=== PATIENT | female | born 1995 | race Caucasian/White ===

== ENCOUNTER 2017-06-14 20:47 | Emergency (ER) | payer OTHER ==
[~2017-06-14] VITALS: Ht 167.6 cm; Wt 74.2 kg
[2017-06-14 20:52] VITALS: Ht 167.6 cm; Wt 74.2 kg
[2017-06-14] MEDS ORDERED: ONDANSETRON INJ 2 MG/ML 2 ML VIAL IV STA (21:01)
[2017-06-14] MEDS ORDERED: CEFTRIAXONE SOD INJ 1 GM ADDVIAL IV STA (21:01)
[2017-06-14] MEDS ORDERED: SODIUM CHLORIDE 0.9% 1000ML 1,000 ML IV STA (21:01)
[2017-06-14] MEDS ORDERED: KETOROLAC TROMETHAMINE 30 MG/ML VIAL IV STA (21:01)
--- NOTE | 2017-06-14 21:09 | EMERGENCY ROOM VISIT NOTE ---
History Report prepared by Orion: Renea Paez Under the Supervision of: Dr. Conrado Smiley M.D. First contact with patient: 20:56 Chief Complaint: URINARY SYMPTOMS Stated Complaint: BACK PAIN/UTI SX Nursing Triage Summary: Urinary tract infection diagnosed at [facility] earlier today. History of Present Illness The patient is a 21 year old female who presents to the Emergency Room with complaints of constant urinary symptoms beginning today. The patient states that she was seen at [facility] today for burning with urination and urinary frequency. 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 She complains of a fever, back pain, and vomiting. The patient notes that she is on her period. Source of History: patient Onset: today Position: other (urinary) Quality: burning Timing: constant Associated Symptoms: + fevers, + vomiting, + back pain Review of Systems See HPI for pertinent positives & negatives. A total of 10 systems reviewed and were otherwise negative. Past Medical & Surgical Medical Problems: (1) No Known Active Medical Problems Family History No pertinent family history stated. Social History Smoking Status: Never Smoker Marital Status: single Housing Status: lives with roommate Occupation Status: [employer] student Current/Historical Medications Scheduled Ondasetron Odt (Zofran Odt), 4 MG SL Q6H Sulfamethoxazole-Trimethoprim (Bactrim Ds 800MG/160MG), 1 TAB PO BID Scheduled PRN Oxycodone Immediate Rel Tab (Roxicodone Ir), 1-2 TAB PO Q4H PRN for Severe Pain Allergies Coded Allergies: No Known Allergies (Unverified , 06/14/17) Physical Exam Vital Signs Date Time Temp Pulse Resp B/P (MAP) Pulse Ox O2 Delivery O2 Flow Rate FiO2 06/14/17 23:44 37.4 101 18 111/79 97 06/14/17 22:50 111 24 112/74 96 Room Air 06/14/17 21:35 122 06/14/17 20:52 38.1 75 22 /141 100 Room Air Physical Exam GENERAL: Patient is a healthy-appearing well-nourished female HEAD: Normocephalic atraumatic EYES: Ocular movements intact pupils equal and react to light OROPHARYNX mucous membranes are moist no exudates present no erythema or edema present NECK: Supple no nuchal rigidity CHEST: Good equal expansion LUNGS: Clear and equal to auscultation CARDIAC: Normal S1 and S2 ABDOMEN: Soft nontender no guarding BACK: Right CVA tenderness. EXTREMITIES: No pain upon palpation normal muscle strength in all groups no clubbing cyanosis or edema NEURO: Patient is following commands and answering questions appropriately. Alert and oriented x3 Cranial Nerves 2-12 grossly intact Medical Decision & Procedures ER Provider Diagnostic Interpretation: Radiology results as stated below per my review and radiologist interpretation: RENAL ULTRASOUND FINDINGS: Right kidney: 11.8 cm. No hydronephrosis. Normal corticomedullary differentiation and cortical thickness. Left kidney: 11.0 cm. The lower pole is partially obscured by overlying bowel gas. No hydronephrosis. Normal corticomedullary differentiation and cortical thickness. Bladder: No bladder wall thickening. The bilateral ureteral jets were identified. IMPRESSION: Normal renal ultrasound. No hydronephrosis. Electronically signed by: Jayson Garcia M.D. 06/14/2017 10:33 PM Dictated Date/Time: 06/14/2017 10:31 PM KUB FINDINGS: The bowel gas pattern is unremarkable. There are no dilated loops of small bowel to suggest an obstruction. No renal calculi identified. Dextroscoliosis of the lumbar spine. A 5 mm calcification within the right deep pelvis. No pneumoperitoneum or pneumatosis. IMPRESSION: A 5 mm nonspecific calcification within the right deep pelvis. This could represent a ureterovesical junction stone given the patient's history of right flank pain. Electronically signed by: Jayson Garcia M.D. 06/14/2017 10:15 PM Dictated Date/Time: 06/14/2017 10:14 PM Laboratory Results 06/14/17 21:10 Red Blood Count 5.16, Mean Corpuscular Volume 85.1, Mean Corpuscular Hemoglobin 30.4, Mean Corpuscular Hemoglobin Concent 35.8, Mean Platelet Volume 10.2, Neutrophils (%) (Auto) 89.2, Lymphocytes (%) (Auto) 9.0, Monocytes (%) (Auto) 1.0, Eosinophils (%) (Auto) 0.3, Basophils (%) (Auto) 0.1, Neutrophils # (Auto) 6.86, Lymphocytes # (Auto) 0.69, Monocytes # (Auto) 0.08, Eosinophils # (Auto) 0.02, Basophils # (Auto) 0.01 06/14/17 21:10 Test 06/14/17 21:05 06/14/17 21:10 Urine Color YELLOW Urine Appearance CLEAR (CLEAR) Urine pH 8.5 (4.5-7.5) Urine Specific [place] 1.009 (1.000-1.030) Urine Protein NEG (NEG) Urine Glucose (UA) NEG (NEG) Urine Ketones 1+ (NEG) Urine Occult Blood 1+ (NEG) Urine Nitrite NEG (NEG) Urine Bilirubin NEG (NEG) Urine Urobilinogen NEG (NEG) Urine Leukocyte Esterase MODERATE (NEG) Urine WBC (Auto) >30 /hpf (0-5) Urine RBC (Auto) 5-10 /hpf (0-4) Urine Hyaline Casts (Auto) 1-5 /lpf (0-5) Urine Epithelial Cells (Auto) 10-20 /lpf (0-5) Urine Bacteria (Auto) 1+ (NEG) Urine Test NEG (NEG) White Blood Count 7.69 K/uL (4.8-10.8) Red Blood Count 5.16 M/uL (4.2-5.4) Hemoglobin 15.7 g/dL (12.0-16.0) Hematocrit 43.9 % (37-47) Mean Corpuscular Volume 85.1 fL (80-100) Mean Corpuscular Hemoglobin 30.4 pg (25-34) Mean Corpuscular Hemoglobin Concent 35.8 g/dl (32-36) Platelet Count 237 K/uL (130-400) Mean Platelet Volume 10.2 fL (7.4-10.4) Neutrophils (%) (Auto) 89.2 % Lymphocytes (%) (Auto) 9.0 % Monocytes (%) (Auto) 1.0 % Eosinophils (%) (Auto) 0.3 % Basophils (%) (Auto) 0.1 % Neutrophils # (Auto) 6.86 K/uL (1.4-6.5) Lymphocytes # (Auto) 0.69 K/uL (1.2-3.4) Monocytes # (Auto) 0.08 K/uL (0.11-0.59) Eosinophils # (Auto) 0.02 K/uL (0-0.5) Basophils # (Auto) 0.01 K/uL (0-0.2) RDW Standard Deviation 41.5 fL (36.4-46.3) RDW Coefficient of Variation 13.3 % (11.5-14.5) Immature Granulocyte % (Auto) 0.4 % Immature Granulocyte # (Auto) 0.03 K/uL (0.00-0.02) Anion Gap 12.0 mmol/L (3-11) Est Creatinine Clear Calc Drug Dose 84.7 ml/min Estimated GFR () 84.3 Estimated GFR (Non- 72.7 BUN/Creatinine Ratio 8.5 (10-20) Calcium Level 10.2 mg/dl (8.5-10.1) Total Bilirubin 1.3 mg/dl (0.2-1) Direct Bilirubin 0.3 mg/dl (0-0.2) Aspartate Amino Transf (AST/SGOT) 15 U/L (15-37) Alanine Aminotransferase (ALT/SGPT) 18 U/L (12-78) Alkaline Phosphatase 64 U/L (45-117) Total Protein 9.3 gm/dl (6.4-8.2) Albumin 4.5 gm/dl (3.4-5.0) Lipase 97 U/L (73-393) Labs reviewed by ED physician. Medications Administered Medications (Trade) Dose Ordered Sig/Mirtha Route Start Time Stop Time Status Last Admin Dose Admin Ceftriaxone Sodium (Rocephin Inj) 1 gm NOW STAT IV 06/14/17 21:01 06/14/17 21:04 DC 06/14/17 21:18 1 GM Ketorolac Tromethamine (Toradol Inj) 30 mg NOW STAT IV 06/14/17 21:01 06/14/17 21:04 DC 06/14/17 21:18 30 MG Sodium Chloride 1,000 ml @ 999 mls/hr Q1H1M STAT IV 06/14/17 21:01 06/14/17 22:01 DC 06/14/17 21:01 999 MLS/HR Ondansetron HCl (Zofran Inj) 4 mg NOW STAT IV 06/14/17 21:01 06/14/17 21:04 DC 06/14/17 21:18 4 MG Trimethoprim/ Sulfamethoxazole (Septra Ds 800/ 160MG Tab) 1 tab NOW STAT PO 06/14/17 21:49 06/14/17 21:50 DC 06/14/17 22:55 1 TAB Acetaminophen (Tylenol Tab) 1,000 mg NOW STAT PO 06/14/17 21:55 06/14/17 21:56 DC 06/14/17 22:55 1,000 MG ED Course 2055: Past medical records reviewed. The patient was evaluated in room B12. A complete history and physical examination was performed. 2100: Zofran Inj 4mg IV, Sodium Chloride 1000 ml @ 999 mls/hr IV, Toradol Inj 30mg IV, Rocephin Inj 1gm IV. 2148: Trimethoprim/Sulfamethoxazole 1 tab PO. 2154: Tylenol Tab 1000mg PO. 2156: I reevaluated the patient. She is feeling much better. 4: Upon reexamination the patient is doing well. I discussed results and treatment plan with the patient. She verbalizes agreement and understanding. The patient is ready for discharge. Medical Decision Differential diagnosis: Etiologies such as renal colic, appendicitis, diverticulitis, mesenteric ischemia, aortic pathology, infections, inflammatory bowel disease, PUD, biliary pathology, UTI, as well as others were entertained. This is a 21-year-old female who presents emergency department complaining of right-sided flank pain along with fever. The patient is tender on examination to the right side. She is also complaining of urinary frequency and burning when she goes. I do believe the patient is most likely suffering from a urinary tract infection. She does have a large amount of white blood cells in her urine. An IV was established, patient given normal saline bolus. She does have a normal white blood cell count however has a left shift. She was given Toradol as well as Rocephin and Zofran in the emergency department. Repeat examination revealed improvement the patient's symptoms. I do feel the patient can be safely discharged home however I stressed the need to return she develops any chest pain or shortness of breath. Patient was in agreement with the treatment plan. Medication Reconcilliation Current Medication List: was personally reviewed by me Impression Primary Impression: Urinary tract infection Scribe Attestation The scribe's documentation has been prepared under my direction and personally reviewed by me in its entirety. I confirm that the note above accurately reflects all work, treatment, procedures, and medical decision making performed by me. Departure Information Dispostion Home / Self-Care Prescriptions Oxycodone Immediate Rel Tab (ROXICODONE IR) 5 Mg Tab 1-2 TAB PO Q4H Y for Severe Pain, #14 TAB Prov: Conrado Smiley MD 06/14/17 Ondasetron Odt (ZOFRAN ODT) 4 Mg Tab 4 MG SL Q6H for Nausea, #6 TAB Prov: Conrado Smiley MD 06/14/17 Sulfamethoxazole-Trimethoprim (Bactrim Ds 800MG/160MG) 1 Tab Tab 1 TAB PO BID for 10 Days, #20 TAB Prov: Conrado Smiley MD 06/14/17 Forms HOME CARE DOCUMENTATION FORM, IMPORTANT VISIT INFORMATION Patient Instructions My [facility] Additional Instructions You were found to have an elevated blood pressure today (>120 sytolic or >90 diastolic). Per medicare guidelines, you need to follow up with this blood pressure screening with your Primary Care Physician (PCP). For a new PCP call [phone]. You received narcotic or benzodiazepene medication while in the emergency room today. Do not drive, operate heavy machinery, or drink alcohol under the influence of this medication. Take 600 mg Ibuprofen every 6 hours Take 1000 mg Tylenol every 6 hours Take oxy for breakthrough pain Culture results are usually available in approx 48 hours You have been examined and treated today on an emergency basis only. This is not a substitute for, or an effort to provide, complete comprehensive medical care. It is impossible to recognize and treat all injuries or illnesses in a single emergency department visit. It is therefore important that you follow up closely with your PCP. Call as soon as possible for an appointment. Thank you for your time and consideration. I look forward to speaking with you again soon. Please don't hesitate to call us if you have any questions. Problem Qualifiers Primary Impression: Urinary tract infection Urinary tract infection type: acute cystitis Hematuria presence: without hematuria Qualified Codes: N30.00 - Acute cystitis without hematuria
[2017-06-14 21:27] LABS: BASO % 0.1 %; BASO ABS # 0.01 K/uL (0-0.2); COMPLETE YES; EOS % 0.3 %; HEMATOCRIT 43.9 % (37-47); IG% 0.4 %; LYMPH ABS # 0.69 K/uL (1.2-3.4); MEAN CELL VOLUME 85.1 fL (80-100); MEAN CORPUSCULAR HEMOGLOBIN 30.4 pg (25-34); MEAN CORPUSCULAR HGB CONC 35.8 g/dl (32-36); MEAN PLATELET VOLUME 10.2 fL (7.4-10.4); NEUT % 89.2 %; PLATELET COUNT 237 K/uL (130-400); RED BLOOD COUNT 5.16 M/uL (4.2-5.4); WHITE BLOOD COUNT 7.69 K/uL (4.8-10.8)
[2017-06-14 21:36] LABS: URINE APPEARANCE CLEAR (CLEAR); URINE BILIRUBIN NEG (NEG); URINE COLOR YELLOW; URINE NITRITE NEG (NEG); URINE PH 8.5 (4.5-7.5); URINE SPECIFIC GRAVITY 1.009 (1.000-1.030); UROBILINOGEN NEG (NEG); ZZUR CULT IF INDIC CLEAN CATCH YES
[2017-06-14 21:37] LABS: MANUAL MICROSCOPIC REQUIRED? NO; REVIEW REQ? NO
[2017-06-14 21:47] LABS: BUN/CREATININE RATIO 8.5 (10-20); CALCIUM 10.2 mg/dl (8.5-10.1); CREATININE 1.1 mg/dl (0.60-1.20); POTASSIUM 3.7 mmol/L (3.5-5.1)
[2017-06-14] MEDS ORDERED: SULFAMETHOXAZOLE/TRIMETHOPRIM DS 800/160MG TAB PO STA (21:49)
[2017-06-14] MEDS ORDERED: ACETAMINOPHEN 500 MG TAB PO STA (21:55)
--- NOTE | 2017-06-14 22:16 | DIAGNOSTIC IMAGING REPORT ---
KUB HISTORY: Pt c/o Rt sided flank pain COMPARISON: None. FINDINGS: The bowel gas pattern is unremarkable. There are no dilated loops of small bowel to suggest an obstruction. No renal calculi identified. Dextroscoliosis of the lumbar spine. A 5 mm calcification within the right deep pelvis. No pneumoperitoneum or pneumatosis. IMPRESSION: A 5 mm nonspecific calcification within the right deep pelvis. This could represent a ureterovesical junction stone given the patient's history of right flank pain. Electronically signed by: Jayson Garcia M.D. 06/14/2017 10:15 PM Dictated Date/Time: 06/14/2017 10:14 PM
--- NOTE | 2017-06-14 22:38 | DIAGNOSTIC IMAGING REPORT ---
RENAL ULTRASOUND HISTORY: Pt c/o Rt sided flank pain COMPARISON: KUB 06/14/2017. FINDINGS: Right kidney: 11.8 cm. No hydronephrosis. Normal corticomedullary differentiation and cortical thickness. Left kidney: 11.0 cm. The lower pole is partially obscured by overlying bowel gas. No hydronephrosis. Normal corticomedullary differentiation and cortical thickness. Bladder: No bladder wall thickening. The bilateral ureteral jets were identified. IMPRESSION: Normal renal ultrasound. No hydronephrosis. Electronically signed by: Jayson Garcia M.D. 06/14/2017 10:33 PM Dictated Date/Time: 06/14/2017 10:31 PM
[2017-06-14] MEDS ORDERED: SULF800T23 PO (23:11)
[2017-06-14] MEDS ORDERED: ONDA4TAB10 SL (23:11)
[2017-06-14] MEDS ORDERED: OXYC1TAB3 PO (23:11)
[2017-06-14] MEDS ORDERED: OXYCODONE IR HOME PACK PO STA (23:24)
[2017-06-14] MEDS ORDERED: ONDANSETRON HOME PACK 4MG OD TAB PO STA (23:24)
[2017-06-14] MEDS ORDERED: SEPTRA DS HOME PACK 1 EA VIAL PO ONE (23:30)
[2017-06-14 23:44] VITALS: BP 111/79; PULSE 101; TEMP 37.4; O2SAT 97
== END 2017-06-14 23:44 | disposition home or self-care (01) ==
LOC: C.EDB 20:52
DX: N39.0 Urinary tract infection, site not specified (principal)